=== PATIENT | female | born 1985 | race Caucasian/White ===

== ENCOUNTER 2016-10-10 19:29 | Emergency (ER) | payer MEDICAID, OTHER ==
[2016-10-10] MEDS ORDERED: Ondansetron 4 MG Tab.DIS PO ONE (19:52)
[2016-10-10] MEDS ORDERED: Dicyclomine 10 MG Cap PO ONE (19:52)
[2016-10-10] MEDS ORDERED: Acetaminophen 325 MG Tab PO ONE (19:54)
--- NOTE | 2016-10-10 20:00 | EDM.PDOC ---
ED HPI GI/ABDOMINAL - General Chief Complaint: Abdominal Pain Stated Complaint: STOMACH PAIN Time Seen by Provider: 10/10/16 19:45 Source: Reports: Patient History Limitations: Reports: No limitations - History of Present Illness INITIAL COMMENTS - FREE TEXT/NARRATIVE: 31 yo female with somewhat progressive generalized abdominal pain for about a year presents with an exacerbation today. Was seen once by her primary Dr. Lange who tested her for Celiac Dz which was negative. She is anticipating colonoscopy soon per his order soon, but was planning on leaving tomorrow to go to [place]. Lives in [place] and went to urgent care there twice for this getting an US once that was negative and a dx of constipation. The other time she mentioned she had trouble breathing with the abdominal pain and she got tested for PE which was negative. She has not had black or bloody stools. Stools are a bit looser than normal today. Some nausea without vomiting. Possible 10# wt loss in a year's time. Has a remote hx of ovarian cysts, but this feels different. Symptom Onset Date: 10/11/15 Timing/Duration: Reports: Week(s):, Intermittent, Waxing/waning Location: generalized Quality: Reports: ache, cramping Severity: moderate Improves with: Reports: other (unknown) Worsens with: Reports: other (unknown) Context: Reports: other (Sx's waxing and waning for about a year. ) Associated Symptoms (-Female): Reports: denies other symptoms, nausea/ vomiting (no vomiting.). Denies: constipation, diarrhea, bloody stools Treatment(s) [employer]: Reports: Other (see below) (none) - Related Data Allergies/ADRs: Allergies Allergy/AdvReac Type Severity Reaction Status Date / Time No Known Allergies Allergy Verified 10/10/16 19:43 Home Meds: Home Meds NK [No Known Home Meds] 10/10/16 [History] Past Medical History Other Gastrointestinal History: chronic abdominal pain - Past Surgical History HEENT Surgical History: Reports: Tonsillectomy Other HEENT Surgeries/Procedures: tubes in the ears Social & Family History - Family History Family Medical History: Unobtainable - Tobacco Use Smoking Status *Q: Never Smoker - Caffeine Use Caffeine Use: Reports: Tea - Recreational Drug Use Recreational Drug Use: No ED ROS GENERAL - Review of Systems Review Of Systems: See Below Constitutional: Reports: weight loss (? 10# in a year). Denies: fever HEENT: Reports: No symptoms Respiratory: Reports: No Symptoms Cardiovascular: Reports: No symptoms Endocrine: Reports: no symptoms GI/Abdominal: Reports: Abdominal pain, Nausea. Denies: Black stool, Bloody stool, Constipation, Diarrhea, Decreased appetite, Hematemesis, Hematochezia, Melena, Mucous in stool, Stool incontinence, Vomiting : Reports: no symptoms Musculoskeletal: Reports: no symptoms Skin: Reports: no symptoms Neurological: Reports: No Symptoms Psychiatric: Reports: No symptoms ED EXAM, GI/ABD - Physical Exam Exam: See Below Exam Limited By: No limitations General Appearance: alert, WD/WN, no apparent distress Eyes: bilateral: normal appearance Ears: normal external exam, normal canal, hearing grossly normal Nose: normal inspection, normal mucosa, no blood Throat/Mouth: Normal inspection, Normal lips, Normal teeth, Normal oropharynx, Normal voice, No airway compromise Head: atraumatic, normocephalic Neck: normal inspection, supple, non-tender Respiratory/Chest: no respiratory distress, lungs clear, normal breath sounds Cardiovascular: regular rate, rhythm, no edema GI/Abdominal: normal bowel sounds, soft, non tender, no distention Back Exam: normal inspection Extremities: normal inspection, normal range of motion, non-tender, no pedal edema Neurological: alert, oriented, CN II-XII intact, normal cognition Psychiatric: normal affect, normal mood Skin Exam: Warm, Dry, Intact, Normal color, No rash Lymphatic: no adenopathy Course - Vital Signs Text/Narrative:: acetaminophen 650 mg po, dicyclomine 20 mg po, Zofran ODT 4 mg SL, GI cocktail po-no change with GI cocktail Last Recorded V/S: Last Vital Signs Temp 36.8 C 10/10/16 19:30 Pulse 112 H 10/10/16 19:30 Resp 16 10/10/16 19:30 BP 108/75 10/10/16 19:30 Pulse Ox 100 10/10/16 19:30 - Orders/Labs/Meds Labs: Laboratory Tests 10/10/16 10/10/16 10/10/16 Range/Units 20:05 20:05 20:05 WBC 7.5 (4.5-12.0) X10-3/uL RBC 4.51 (3.23-5.20) x10(6)uL Hgb 13.3 (11.5-15.5) g/dL Hct 39.1 (30.0-51.3) % MCV 86.7 (80-96) fL MCH 29.5 (27.7-33.6) pg MCHC 34.0 (32.2-35.4) g/dL RDW 12.5 (11.5-15.5) % Plt Count 237 (125-369) X10(3)uL Sodium 137 (135-145) mmol/L Potassium 3.5 (3.5-5.3) mmol/L Chloride 107 (100-110) mmol/L Carbon Dioxide 25 (23-29) mmol/L BUN 10 (5-20) mg/dL Creatinine 0.6 (0.6-1.3) mg/dL Est Cr Clr Drug Dosing 109.42 mL/min Estimated GFR (MDRD) > 60 (>60) BUN/Creatinine Ratio 16.7 (9-20) Glucose 110 (80-116) mg/dL Calcium 8.4 L (8.6-10.2) mg/dL C-Reactive Protein 1.4 H (0.0-1.0) mg/dL Amylase 51 (28-100) U/L Meds: Medications Discontinued Medications Generic Name Dose Route Start Last Admin Trade Name Freq PRN Reason Stop Dose Admin Acetaminophen 650 mg 10/10/16 19:54 10/10/16 19:58 Tylenol PO 10/10/16 19:55 650 mg NOW ONE Administration Al Hydroxide/Mg Hydroxide 15 0 ml 10/10/16 20:50 10/10/16 20:54 ml/ Lidocaine HCl 15 ml PO 10/10/16 20:51 15 ml ONETIME ONE Administration Dicyclomine HCl 20 mg 10/10/16 19:52 10/10/16 19:58 Bentyl PO 10/10/16 19:53 20 mg ONETIME ONE Administration Ondansetron HCl 4 mg 10/10/16 19:52 10/10/16 19:59 Zofran Odt PO 10/10/16 19:53 4 mg ONETIME ONE Administration Departure - Departure Time of Disposition: 21:00 Disposition: Home, Self-Care 01 Condition: fair Clinical Impression: Abdominal pain Qualifiers: Abdominal location: generalized Qualified Code(s): R10.84 - Generalized abdominal pain IBS (irritable bowel syndrome) Qualifiers: Irritable bowel syndrome type: with both diarrhea and constipation Qualified Code(s): K58.2 - Mixed irritable bowel syndrome Forms: ED Department Discharge
[2016-10-10] MEDS ORDERED: Alum Hydroxide/Mag Hydroxide 15 ML, Lidocaine 2% 15 ML PO ONE ×2 (20:50)
[2016-10-10 21:14] VITALS: BP 106/59
== END 2016-10-10 21:15 | disposition home or self-care (01) ==
LOC: FB.ED 19:29
DX: K58.2 Mixed irritable bowel syndrome (principal); Z98.890 Other specified postprocedural states
CPT/HCPCS: 36415; 80048; 82150; 85027; 86140; 99284; A9270; 99283

== ENCOUNTER 2016-11-07 07:46 | Day surgery (SDC) | payer MEDICAID, OTHER ==
[2016-11-07] MEDS ORDERED: Lactated Ringers 1,000 ML IV SCH (08:40)
[2016-11-07] MEDS ORDERED: Lidocaine 2% 100 MG/5 ML Syringe IVPUSH ONE (09:45)
[2016-11-07] MEDS ORDERED: Propofol 200 MG/20 ML SDV IV ONE (09:45)
[2016-11-07] MEDS ORDERED: Midazolam 1 MG/ML 2 ML SDV IV ONE (09:45)
--- NOTE | 2016-11-07 10:13 | PCM.OPNOTE ---
- General Post-Op/Procedure Note Date of Surgery/Procedure: 11/07/16 Operative Procedure(s): egd with bx Findings: gastritis esophagitis Pre Op Diagnosis: epigastric abd pain. diarrhea Post-Op Diagnosis: gastritis. esophagitis Anesthesia Technique: [facility] [place] Primary Surgeon: Rob Gold Anesthesia Provider: Adriana George Pathology: duodenum to r/o celiac disease gastric distal esophagus Complications: None Condition: Good Free Text/Narrative:: see dictation
[2016-11-07 11:44] VITALS: BP 98/58
--- NOTE | 2016-11-07 14:53 | OR ---
DATE OF OPERATION: 11/07/2016 SURGEON: Rob Gold MD PROCEDURE PERFORMED: EGD with cold forceps biopsy. PREOPERATIVE DIAGNOSIS: Epigastric abdominal pain. POSTOPERATIVE DIAGNOSIS: Gastritis as well as esophagitis. INDICATIONS FOR PROCEDURE: This is a 31-year-old white female referred with a history of crampy abdominal pain and diarrhea, as well as epigastric discomfort. She was offered and accepted an EGD. DESCRIPTION OF PROCEDURE: After an excellent IV sedation was administered, the bite block was inserted. The flexible endoscope was passed without difficulty down the patient's esophagus, into the stomach. The stomach was insufflated. The scope was passed through the pylorus to the second portion of the duodenum and slowly withdrawn. The following findings were noted. Duodenum was grossly normal, but due to history of crampy pain, biopsies were taken to rule out celiac disease. Stomach, in the area of the fundus, inflammation was noted. Biopsies were taken as well as photos. GE junction measured at 35 cm. The esophagus just proximal to that had evidence of gastroesophageal reflux disease and biopsies were taken of this area as well. The remainder of the esophagus was unremarkable. The stomach was deflated. The scope was removed. The patient tolerated the procedure well and was taken to recovery room in good condition. /[id number] /MODL
== END 2016-11-07 11:15 | disposition home or self-care (01) ==
LOC: FB.SDS 07:46
PROVIDERS: ATTEND Surgery
DX: K29.80 Duodenitis without bleeding (principal); K29.50 Unspecified chronic gastritis without bleeding; K20.9 Esophagitis, unspecified; K22.70 Barrett's esophagus without dysplasia; E66.9 Obesity, unspecified; Z79.899 Other long term (current) drug therapy
CPT/HCPCS: 43239; 81025; 88305; 88313; 88342; J2250; J2704; J7120